=== PATIENT | female | born 1995 | race Caucasian/White ===

== ENCOUNTER 2018-09-03 18:09 | Emergency (ER) | payer BC ==
[~2018-09-03] VITALS: Ht 170.2 cm; Wt 67.6 kg
--- NOTE | 2018-09-03 18:30 | NUR ---
Patient presented to the ER c/o heart palpitations and abdominal pain. On room air, breathing evenly and unlabored. Seen by dr. Mckee for eval. IV access initiated on the RAC G18. Blood drawned and sent to lab. Kept comfortable, will continue to monitor accordingly.
[2018-09-03 18:49] LABS: BASOPHILS # (AUTO) 0.1 /CMM (0.0-0.2); BASOPHILS % (AUTO) 0.7 % (0.0-2.0); EOSINOPHILS % (AUTO) 0.7 % (0.0-6.0); HEMATOCRIT 41 % (33-45); HEMOGLOBIN 13.5 g/dL (11.5-14.8); LYMPHOCYTES # (AUTO) 1.7 /CMM (0.8-4.8); LYMPHOCYTES % (AUTO) 23.5 % (20.0-44.0); MEAN CORPUSCULAR HGB CONC 33 g/dl (31.0-36.0); MEAN CORPUSCULAR VOLUME 92 fL (82-100); MONOCYTES # (AUTO) 0.5 /CMM (0.1-1.30); MONOCYTES % (AUTO) 6.4 % (2.0-12.0); NEUTROPHILS % (AUTO) 68.7 % (43.0-81.0); PLATELET COUNT (AUTO) 243 /CMM (150-450); RED BLOOD CELL COUNT(AUTO) 4.42 MIL/uL (4.0-5.2); WHITE BLOOD COUNT (AUTO) 7.3 K/uL (4.3-11.0)
[2018-09-03 18:57] LABS: CALCIUM, SERUM 9.5 mg/dL (8.5-10.1); CARBON DIOXIDE 27 mmol/L (21-32); CHLORIDE 102 mmol/L (98-107); CREATININE 0.8 mg/dL (0.6-1.3); GLUCOSE 83 mg/dL (74-106); POTASSIUM 4.1 mmol/L (3.5-5.1); SODIUM SERUM 137 mmol/L (136-145); UREA NITROGEN, BLOOD 17 mg/dL (7-18)
[2018-09-03 19:09] LABS: B-TYPE NATRIURETIC PEPTIDE 97 PG/ML (0-125)
--- NOTE | 2018-09-03 19:15 | NUR ---
REPORT REC'D FROM CHANDNI INFANTE FOR [facility].
--- NOTE | 2018-09-03 19:16 | NUR ---
report given to Latonya shift mgr nurse for vivien.
--- NOTE | 2018-09-03 19:18 | NUR ---
PT'S VSS. PT STATED THAT SHE IS TAKING WELLBUTRIN FOR THE PAST 2 WKS AND FEELS THAT IT'S NOT AGREEING WITH HER. PT IS NOT CURRENTLY SEEING THE PSYCHIATRIST THAT PRESCRIBED THE WELLBUTRIN TO HER. SHE IS LOOKING FOR A NEW PSYCHIATRIST. DR. ALVARADO WAS NOTIFIED RE: PT'S CONCERN.
[2018-09-03 19:57] VITALS: BP 121/71
== END 2018-09-03 19:50 | disposition home or self-care (01) ==
LOC: ER 18:15
DX: R00.2 Palpitations (principal); Z98.890 Other specified postprocedural states
CPT/HCPCS: 36415; 80048-TC; 83880; 84484-TC; 84702-TC; 85025-TC